=== PATIENT | male | born 1940 | race Caucasian/White ===

== ENCOUNTER → 2017-12-23 12:37 | Outpatient (CLI) | payer MEDICARE, BC ==
[2013-06-10 12:49] VITALS: BMI 25.4
[~2017-12-23 12:37] MED LIST: ASPIRIN325 MG PO; HCTZ25 MG PO; HEMOCYTE PLUS1 CAP PO; HYTRIN5 MG PO; LISINOPRIL10 MG PO; LOPRESSOR25 MG PO; MOBIC7.5 MG PO; NORCO 7.5-3251 EACH PO; PRAVACHOL20 MG PO; ZANAFLEX4 MG PO
== END | disposition home or self-care (01) ==
LOC: D.MRI 12:37
DX: M79.7 Fibromyalgia (principal); R29.2 Abnormal reflex; M62.838 Other muscle spasm

== ENCOUNTER → 2018-02-28 12:59 | Outpatient (CLI) | payer MEDICARE ==
[2013-06-10 12:49] VITALS: BMI 25.4
== END | disposition home or self-care (01) ==
LOC: D.CT 12:59
DX: R29.6 Repeated falls (principal)

== ENCOUNTER 2018-03-24 10:05 | Emergency (ER) | payer MEDICARE ==
[~2018-03-24] VITALS: Ht 175.3 cm; Wt 73.5 kg
[2018-03-24 10:08] VITALS: Ht 175.3 cm; Wt 73.5 kg
[2018-03-24 11:36] LABS: BASOPHILS 0.1 % (0-2); EOSINOPHILS 0.6 % (0-7); HEMATOCRIT 44.7 % (42.0-54.0); HEMOGLOBIN 15.5 g/dL (13.5-17.5); IMMATURE GRANULOCYTES 0.1 % (0-5); LYMPHOCYTES 21.5 % (15-50); MCH 30.3 pg (26.0-34.0); MCHC 34.7 g/dL (31.0-37.0); MCV 87.5 fL (80.0-100.0); MEAN PLATELET VOLUME 9.7 fL (7.4-10.4); MONOCYTES 8.3 % (2-11); NEUTROPHILS 69.4 % (40-80); PLATELET COUNT 166 10x3/uL (130-400); RBC 5.11 10x6/uL (4.20-6.10); RDW 12.6 % (11.5-14.5); WBC 6.9 10x3/uL (4.8-10.8)
[2018-03-24 11:59] LABS: ANION GAP 15.5 mmol/L (8-16); BILIRUBIN - TOTAL 0.98 mg/dL (0.2-1.3); CALCIUM 8.8 mg/dL (8.5-10.1); CARBON DIOXIDE 25.9 mmol/L (21.0-32.0); CREATININE - SERUM 1.3 mg/dL (0.6-1.3); POTASSIUM - SERUM 4.4 mmol/L (3.5-5.1); PROTEIN - SERUM 7.5 g/dL (6.4-8.2)
[2018-03-24 15:21] VITALS: BP 135/84
== END 2018-03-24 15:22 | disposition home or self-care (01) ==
LOC: D.ER 10:05
PROVIDERS: Family Medicine
DX: R14.0 Abdominal distension (gaseous) (principal); I10 Essential (primary) hypertension; N42.9 Disorder of prostate, unspecified

== ENCOUNTER → 2018-04-16 10:53 | Outpatient (CLI) | payer MEDICARE ==
[2018-03-24 10:08] VITALS: BMI 25.4
== END | disposition home or self-care (01) ==
LOC: D.CT 10:53
DX: R10.9 Unspecified abdominal pain (principal)

== ENCOUNTER → 2019-02-05 10:52 | Outpatient (CLI) | payer MEDICARE ==
[2018-03-24 10:08] VITALS: BMI 25.4
[~2019-02-05 10:52] MED LIST changes: +ISOSORBIDE MONO30 M1 PO
[2019-02-12 07:18] VITALS: BMI 25.1
== END | disposition home or self-care (01) ==
LOC: D.HCCARDIO 10:52
PROVIDERS: ATTEND Internal Medicine Cardiovascular Disease
DX: I25.110 Atherosclerotic heart disease of native coronary artery with unstable angina pectoris (principal); I10 Essential (primary) hypertension

== ENCOUNTER 2019-02-12 06:33 | Outpatient (CLI) | payer MEDICARE ==
[~2019-02-12] VITALS: Ht 175.3 cm; Wt 77.3 kg
--- NOTE | ~2019-02-12 | HEMODYNAMI ---
PATIENT:JUNIOR FORRESTER MEDICAL RECORD: [id number] : 42 LOCATION:[facility] ADMISSION DATE: 02/12/19 Generatedon:02/12/20199:10 Patient name: JUNIOR FORRESTER Patient #: [id number] SSN: [id number] : 1940 Date of study: 02/12/2019 Page: Of Hemodynamic Procedure Report Patient Data Patient Demographics Procedure consent was obtained First Name: JUNIOR Gender: Male Last Name: USAMA : 1940 [facility] Initial: MARY JO Age: 78 year(s) Patient #: [id number] Race: SSN: [id number] Additional ID: [id number] Contact details [address]: [address] [place] [address] rd State: [place] City: [place] Zip code: [address] Past Medical History Performed procedures and imaging results Date Procedure Procedure Results Comments Stress testing Positive->Intermediate with SPECT MPI risk History of disease Date Diagnosis Comments CAD Allergies: No allergy information Admission Admission Data Admission Date: 02/12/2019 Admission Time: 6:33 Arrival Date: 02/12/2019 Arrival Time: 0:00 Admit Source: Other Insurance Payor: Medicaid [facility] #: [id number] Height (in.): 69 BSA: 1.95 (m2) Height (cm.): 175.26 BMI: 25.84 (kg/m2) Weight (lbs.): 175 Weight (kg.): 79.38 Medications upon Admission Medications Dosage Times Administered Last Remarks per Delivery Day Date and Time Aspirin 325 mg 1 (any) Statin (any) 20 mg 1 Lab Results Lab Result Date: 02/12/2019 Lab Result Time: 0:00 Biochemistry Name Units Result Min Max BUN mg/dl 18 --(---*)-- 7 18 Creatinine mg/dl 1.3 --(---*)-- 0.6 1.3 eGFR ml/min 57 *-(----)-- 90 120 NONAFRICAN CBC Name Units Result Min Max Hematocrit % 41.3 -*(----)-- 42 54 Hemoglobin g/dl 14.6 --(-*--)-- 13.5 17.5 Procedure Procedure Types Cath Procedure Diagnostic Procedure [facility] w/Coronaries w/Grafts Sedation Charges Moderate Sedation up to 15 minutes Procedure Description Procedure Date Procedure Date: 02/12/2019 Procedure Start Time: 8:44 Procedure End Time: 9:08 Procedure Staff Name Function Aravind Godoy MD Performing Physician Elizabeth Castro RT Monitor Yumiko Maxwell RN Pool Finisher Del Villanueva RT Scrub Tammie Damon RT Scrub Yumiko Maxwell RN Nurse Indication CAD Procedure Data Cath Procedure Fluoroscopy Diagnostic fluoroscopy Total fluoroscopy Time: 4.3 time: 4.3 min min Diagnostic fluoroscopy Total fluoroscopy dose: 592 dose: 592 mGy mGy Contrast Material Contrast Material Type Amount (ml) Isovue 300 103 Entry Location Entry Primary Successful Side Size Upsize Upsize Entry Closure Succes sful Closure Location (Fr) 1 (Fr) 2 (Fr) Remarks Device Remarks Femoral Right 5 Fr Exoseal artery Estimated blood loss: 5 ml Diagnostic catheters Device Type Used For End Catheter Placement MULTIPACK JL 4.0 5Fr Procedure catheter DIAGNOSTIC AR MOD 5Fr Procedure Catheter ([id number]) DIAGNOSTIC IM 5Fr Procedure catheter ([id number]) MULTIPACK Pigtail 5 Fr Procedure catheter Procedure Complications No complications Procedure Medications Medication Administration Route Dosage Oxygen etCO2 Nasal cannula 2 l/min Lidocaine 2% added to field 20 Heparin Flush Bag added to field 2 bags (1000units/500ml NS) 0.9% NaCl I.V. 100 ml/hr Versed I.V. 1 mg Fentanyl I.V. 50 mcg Versed I.V. 1 mg Fentanyl I.V. 50 mcg Versed I.V. 1 mg Hemodynamics Rest BSA: 1.95 (m2) O2 Consumption: Estimated: 203.45 (ml/min) O2 Consumption indexed : Estimated:104.33 (ml/min/m) Heart Rate: 43 (bpm) Pressure Samples Time Site Value (mmHg) Purpose Heart Use Rate(bpm) 8:58 LV 140/-7,12 Snapshot 53 Gradients Valve Time Site Site Mean SEP/DFP Peak To Heart Use 1 2 (mmHg) (sec/min) Peak Rate (mmHg) (bpm) Aortic 8:59 LV AO 49 Snapshots Pre Cath Intra NCS Post Cath Vital Signs Time Heart Resp SPO2 etCO2 NIBP (mmHg) Rhythm Pain Sedation Rate (ipm) (%) (mmHg) Status Level (bpm) 8:23:16 44 10 100 18 152/68(125) NSR 0 (11) 10(A) , No pain 8:27:42 44 19 95 27 131/59(111) NSR 0 (11) 10(A) , No pain 8:32:02 45 16 96 29.3 138/60(105) NSR 0 (11) 10(A) , No pain 8:36:24 44 14 98 29.3 142/62(110) NSR 0 (11) 9(A) , No pain 8:40:50 44 13 97 30 135/58(104) NSR 0 (11) 9(A) , No pain 8:45:11 46 14 97 9.7 143/61(101) NSR 0 (11) 9(A) , No pain 8:49:35 48 11 97 31.6 154/62(103) NSR 0 (11) 9(A) , No pain 8:54:34 51 11 97 9.7 Measuring NSR 0 (11) 9(A) , No pain 8:54:52 54 11 94 0 130/53(100) NSR 0 (11) 9(A) , No pain 8:59:12 48 15 97 12.7 120/50(98) NSR 0 (11) 10(A) , No pain 9:04:11 46 10 98 12 Measuring NSR 0 (11) 10(A) , No pain 9:04:30 48 10 98 0 142/54(105) NSR 0 (11) 10(A) , No pain Medications Time Medication Route Dose Verified Delivered Reason Notes Effec tiveness by by 8:11:50 Oxygen etCO2 2 Aravind Buffie used for Nasal l/min Walt Maxwell RN procedure cannula 8:12:24 Lidocaine 2% added 20ml Aravind Aravind used for to vial Walt Godoy MD procedure field 8:12:30 Heparin Flush added 2 Aravind Aravind used for Bag to bags Walt Godoy MD procedure (1000units/500ml field NS) 8:12:47 0.9% NaCl I.V. 100 Aravind Buffie Per ml/hr Walt Maxwell RN physician 8:32:03 Versed I.V. 1 mg Aravind Bhavyaie for Walt Maxwell RN sedation 8:32:09 Fentanyl I.V. 50 Aravind Buffie for mcg Walt Maxwell RN sedation 8:45:36 Versed I.V. 1 mg Aravind Buffie for Walt Maxwell RN sedation 8:45:39 Fentanyl I.V. 50 Aravind Buffie for mcg Walt Maxwell RN sedation 8:55:01 Versed I.V. 1 mg Aravind Buffie for Walt Maxwell RN sedation Procedure Log Time Note 8:06:27 Informed consent obtained and on chart 8:07:06 Del Villanueva RT(R) sent for patient. Start room use. 8:09:13 Patient allergic to No allergy information 8:09:21 Arrival Date: 02/12/2019 12:00:00 AM 8:09:49 Insurance Payor : Medicaid 8:09:50 Admit Source: Other 8:09:56 Patient Height : 69 inches 8:10:11 Patient Weight : 175 lbs 8:11:50 Oxygen 2 l/min etCO2 Nasal cannula was administered by Yumiko Maxwell RN; used for procedure; 8:12:24 Lidocaine 2% 20ml vial added to field was administered by Aravind Godoy MD; used for procedure; 8:12:30 Heparin Flush Bag (1000units/500ml NS) 2 bags added to field was administered by Aravind Godoy MD; used for procedure; 8:12:47 0.9% NaCl 100 ml/hr I.V. was administered by Yumiko Maxwell RN; Per physician; 8:15:04 Lab Result : BUN 18 mg/dl 8:15:04 Lab Result : eGFR NONAFRICAN 57 ml/min 8:15:04 Lab Result : Creatinine 1.3 mg/dl 8:15:04 Lab Result : Hemoglobin 14.6 g/dl 8:15:04 Lab Result : Hematocrit 41.3 % 8:15:35 Indication : CAD 8:15:46 Patient received from Pre/Post Procedure Room to CCL 1 Alert and oriented. Tansferred to table in Supine position. 8:15:48 Warm blankets applied, and eileen hugger turned on for patient comfort. 8:15:48 Correct patient and procedure confirmed by team. 8:15:49 ECG and BP/O2 sat monitors applied to patient. 8:15:59 H&P Date Dictated: 01/29/2019 Within 30 days and on chart., H&P Addendum completed by physician on day of procedure. (MUST COMPLETE FOR ALL OUTPATIENTS). 8:21:16 Pre-procedure instructions explained to patient. 8:21:16 Pre-op teaching completed and patient verbalized understanding. 8:21:18 Family in patients room. 8:21:19 Patient NPO since Midnight. 8:21:21 Is patient on blood thinner?No 8:21:23 Patient diabetic? No. 8:21:26 Previous problem with sedation/anesthesia? No ? 8:21:28 Snore? Yes 8:21:30 Sleep apnea? No 8:21:34 Deviated septum? No 8:21:54 Opens mouth fully? Yes 8:21:56 Sticks out tongue? Yes 8:22:00 Vital chart was started 8:22:00 Airway obstruction? No ? 8:22:03 Dentures? No ? 8:23:05 Pre procedure: right dorsailis pedis pulse 2+ Normal; easily identifiable; not easily obliterated 8:23:08 Patient pain scale 0/10 ?. 8:23:12 IV patent on arrival in left hand with 0.9% NaCl at [facility]. 8:23:15 Lab results completed and on chart. 8:23:18 Right groin area was prepped with chlora-prep and draped in sterile fashion 8:23:19 Alarms reviewed by R. N. 8:23:19 Sharps counted by scrub and verified by R.N. 8:23:23 Use device set Femoral Dx 8:23:24 ACIST Syringe (54169) opened to sterile field. 8:23:24 Bag Decanter (2002S) opened to sterile field. 8:23:25 ACIST Hand Control (88931) opened to sterile field. 8:23:25 ACIST Manifold (67110) opened to sterile field. 8:23:26 Tegaderm 4 x 4 (1626W) opened to sterile field. 8:23:27 Medline Cath Pack ([id number]) opened to sterile field. 8:23:28 DIAGNOSTIC Multipack 5Fr catheter set ([id number]) opened to sterile field. 8:23:29 SHEATH 5FR Cecil (TIV506) opened to sterile field. 8:23:29 EMERALD Guide Wire (638-853) opened to sterile field. 8:23:41 Rhythm: sinus bradycardia 8:23:43 Full Disclosure recording started 8:30:14 --------ALL STOP TIME OUT------ 8:30:14 Final Timeout: patient, procedure, and site verified with staff and physician. All members of the team are in agreement. 8:30:16 Right groin site verified by team. 8:30:19 Fire Safety Assessment: A--An alcohol-based skin anteseptic being used preoperatively., C--Open oxygen or nitrous oxide is being used., D--An ESU, laser, or fiber-optic light is being used. 8:30:22 Physical assessment completed. ASA score P 2 - A patient with mild systemic disease as per Aravind Godoy MD. 8:30:26 3a) 45-59 Moderately reduced kidney function. 8:30:30 Maximum allowable contrast dose (3.7 X eGFR X 0.75)158 ml. 8:30:34 Sedation plan: IV Moderate Sedation Medication:Versed, Fentanyl 8:32:03 Versed 1 mg I.V. was administered by Yumiko Maxwell RN; for sedation; 8:32:09 Fentanyl 50 mcg I.V. was administered by Yumiko Maxwell RN; for sedation; 8:42:05 Zero performed for pressure channel P1 8:42:09 Zero performed for pressure channel P1 8:42:18 Baseline sample Acquired. 8:43:31 Procedure started. 8:44:18 Local anesthetic to right femoral artery with Lidocaine 2% by Aravind Godoy MD.INITIAL ACCESS ONLY 8:45:36 Versed 1 mg I.V. was administered by Yumiko Maxwell RN; for sedation; 8:45:39 Fentanyl 50 mcg I.V. was administered by Yumiko Maxwell RN; for sedation; 8:45:56 A 5 Fr sheath was inserted into the Right Femoral artery 8:47:13 A MULTIPACK JL 4.0 5Fr catheter was advanced over the wire and used for Procedure. 8:48:45 LCA angiography performed. 8:49:18 Catheter exchanged over wire. 8:50:04 A DIAGNOSTIC AR MOD 5Fr Catheter ([id number]) was advanced over the wire and used for Procedure. 8:52:40 SVG to Diag occluded. 8:53:17 Catheter exchanged over wire. 8:54:19 A DIAGNOSTIC IM 5Fr catheter ([id number]) was advanced over the wire and used for Procedure. 8:55:01 Versed 1 mg I.V. was administered by Yumiko Maxwell RN; for sedation; 8:55:24 MCKEON to LAD angiography performed. 8:56:00 Catheter exchanged over wire. 8:58:11 A MULTIPACK Pigtail 5 Fr catheter was advanced over the wire and used for Procedure. 8:58:26 LV gram done using POPE 8:58:28 Injector settings: Ml/sec: 10, Volume: 20, 8:58:53 LV hemodynamics recorded. 8:59:11 EF : 50 % 8:59:30 Catheter removed. 8:59:34 EXOSEAL 5Fr (EX500) opened to sterile field. 9:00:16 Sheath removed intact; hemostasis achieved with Exoseal to the Right Femoral artery. 9:01:13 Procedure ended.(Physican Out) 9:02:10 Fluoroscopy time 04.30 minutes. 9:02:15 Fluoroscopy dose: 592 mGy 9:02:15 Flurop Dose total: 592 9:02:20 Dose Area Product 22771 mGy/cm. 9:02:24 Contrast amount:Isovue 300 103ml. 9:03:30 Maximum allowable dose exceeded? No. 9:03:31 Sharps counted by scrub and verified by R.N. 9:04:34 Post-op/insertion site Right Femoral artery dressed using a 4 x 4 and Tegaderm. 9:04:38 Post-procedure physical assessment completed. ASA score P 2 - A patient with mild systemic disease as per Aravind Godoy MD. 9:04:41 Post procedure rhythm: sinus bradycardia 9:04:44 Estimated blood loss: 5 ml 9:04:45 Post procedure instruction explained to patient.Patient verbalizes understanding. 9:04:46 Patient needs reinforcement of post procedure teaching. 9:05:25 Procedure type changed to Cath procedure, Diagnostic procedure, LHC, LHC w/Coronaries w/Grafts, Sedation Charges, Moderate Sedation up to 15 minutes 9:08:04 Procedure and supply charges have been captured, reviewed, submitted and are correct. 9:08:07 Procedure Complication : No complications 9:08:11 Vital chart was stopped 9:08:13 See physician's report for complete and final results. 9:08:16 Report given to Pre/Post Procedure Room. 9:08:19 Patient transfered to Pre/Post Procedure Room with Bed. 9:08:22 Procedure ended. 9:08:22 Full Disclosure recording stopped 9:08:27 End room use (Document Last) Device Usage Item Name Manufacture Quantity Catalog Hospital Part Current Minimal L ot# / Number Charge Number Stock Stock Serial# Code ACIST Acist 1 44686 887233 527607 158413 20 Syringe Medical (99278) Systems Inc Bag Microtek 1 2001S 645713 15242 527043 5 Decanter Medical Inc. () ACIST Hand Acist 1 55663 966183 644525 626497 5 Control Medical (66464) Systems Inc ACIST Acist 1 04154 895216 344396 639793 5 Manifold Medical (08521) Systems Inc Tegaderm 4 3M 1 1626W 228461 669987 311909 5 x 4 (1626W) Medline Medline 1 [id number] 891218 56010 284137 5 Cath Pack ([id number]) DIAGNOSTIC Cardinal 1 [id number] 935308 38709 142035 30 Multipack Health 5Fr catheter set (YC4819) SHEATH 5FR Terumo 1 MRK596 021141 350480 262212 5 Cecil (RLT230) EMERALD Cardinal 1 502-455 621203 399226 530672 5 Guide Wire Health (502455) MULTIPACK Cardinal 1 401485 5 JL 4.0 5Fr Health catheter DIAGNOSTIC Cardinal 1 [id number] 927000 482250 816148 15 AR MOD 5Fr Health Catheter (263437G) DIAGNOSTIC Cardinal 1 [id number] 671656 372145 100126 5 IM 5Fr Health catheter (404674A) MULTIPACK Cardinal 1 189022 5 Pigtail 5 Health Fr catheter EXOSEAL 5Fr Cardinal 1 EX500 547404 452893 840125 10 (EX500) Health Signature Audit [place] Stage Time Signature Unsigned Intra-Procedure 02/12/2019 Elizabeth Castro 9:10:03 AM RT(R) Signatures Performing Physician : Signature : Aravind Godoy MD Date : Time : Monitor : Elizabeth Castro Signature : RT Date : Time : Nurse : Buffie Maxwell RN Signature : Date : Time : [address] [place] [address]
[~2019-02-12 06:33] MED LIST changes: -ISOSORBIDE MONO30 M1 PO
[2019-02-12 07:18] VITALS: BP 159/62; Ht 175.3 cm; Wt 77.3 kg
[2019-02-12 07:19] LABS: BASOPHILS 0.3 % (0-2); EOSINOPHILS 1.2 % (0-7); HEMATOCRIT 41.3 % (42.0-54.0); HEMOGLOBIN 14.6 g/dL (13.5-17.5); IMMATURE GRANULOCYTES 0.2 % (0-5); LYMPHOCYTES 28.6 % (15-50); MCH 30.2 pg (26.0-34.0); MCHC 35.4 g/dL (31.0-37.0); MCV 85.5 fL (80.0-100.0); MEAN PLATELET VOLUME 9.5 fL (7.4-10.4); MONOCYTES 9.2 % (2-11); NEUTROPHILS 60.5 % (40-80); PLATELET COUNT 170 10x3/uL (130-400); RBC 4.83 10x6/uL (4.20-6.10); RDW 12.7 % (11.5-14.5); WBC 5.9 10x3/uL (4.8-10.8)
[2019-02-12 07:35] LABS: CHOL - HDL RATIO 4.2 ratio (2.3-4.9); LDL-HDL RATIO 2.7 ratio (1.5-3.5)
[2019-02-12 07:50] LABS: ANION GAP 14.8 mmol/L (8-16); CALCIUM 8.7 mg/dL (8.5-10.1); CARBON DIOXIDE 23.2 mmol/L (21.0-32.0); CREATININE - SERUM 1.3 mg/dL (0.6-1.3)
--- NOTE | 2019-02-12 09:28 | NUR ---
RECEIVED PT FROM HADOOP ADMINISTRATOR,. PT IS DROWSY BUT ANSWERS QUESTIONS APPROPRIATELY, DENIES ANY C/O CHEST PAIN. DRESSING CDI TO RIGHT GROIN. PEDAL PULSES PALPABLE. SINUS TATIANA AT 44, BP IS 137/58. HOB IS FLAT, BED LOCKED AND LOW, SIDE RAILS UP X2, CALL LIGHT IN REACH, NO FAMILY AT BEDSIDE.
[2019-02-12] MEDS ORDERED: ISOSORBIDE MONO30 M1 PO (09:33)
--- NOTE | 2019-02-12 09:42 | NUR ---
DRESSING CDI TO RIGHT GROIN, AREA IS SOFT AND NONTENDER. PEDAL PULSES PALPABLE. RESP WITH EASE ON O2 AT 2LPM VIA NC. SINUS TATIANA AT 44, DENIES ANY C/O CHEST PAIN. HOB IS FLAT. CALL LIGHT IN REACH.
--- NOTE | 2019-02-12 10:06 | NUR ---
PT SLEEPING, RESP WITH EASE ON O2 AT 2LPM VIA NC. DRESSING CDI TO RIGHT GROIN, AREA IS SOFT AND NONTENDER. PEDAL PULSES PALPABLE. HOB IS FLAT. SINUS TATIANA AT 44, BP IS 126/54. HOB IS FLAT, CALL LIGHT IN REACH.
--- NOTE | 2019-02-12 10:31 | NUR ---
PT ALERT, DENIES ANY C/O. HOB ELEVATED 30 DEGREES, DRESSING CDI TO RIGHT GROIN, PEDAL PULSES PALPABLE. SINUS TATIANA AT 44, DENIES ANY C/O CHEST PAIN. CALL LIGHT IN REACH.
--- NOTE | 2019-02-12 10:44 | NUR ---
DRESSING CDI TO RIGHT GROIN, AREA IS SOFT AND NONTENDER. SINUS TATIANA AT 44, PT IS ALERT AND DENIES ANY C/O CHEST PAIN. BP IS 143/64. HOB FULLY ELEVATED, SANDWICH AND PO FLUIDS SERVED. CALL LIGHT IN REACH. NO FAMILY AT BEDSIDE.
--- NOTE | 2019-02-12 11:09 | NUR ---
PT SITTING UP IN BED, WATCHING TV. IS ALERT AND DENIES ANY C/O PAIN OR NAUSEA. DRESSING REMAINS CDI TO RIGHT GROIN, PEDAL PULSES PALPABLE. PT HAS TOLERATED 100% OF SANDWICH TRAY. CALL LIGHT IN REACH.
--- NOTE | 2019-02-12 12:17 | NUR ---
1140 IV DC'D IWTH CATH INTACT. DC INSTRUCTIONS REVIEWED WITH PT WHO VERBALIZES UNDERSTANDING. IMDUR PRESCRIPTION TO PT. DRESSING REMAINS CDI TO RIGHT GROIN. PEDAL PULSES PALPABLE. PT IS ALERT AND DENIES ANY C/O. PT DRESSING FOR DC TO HOME WITH ASSIST. 1205 PT HAS VOIDED APPROX 600 CC CLEAR YELLOW URINE TO URINAL. IS DRESSED FOR DC TO HOME. PT'S SON IS HERE TO PICK HIM UP. PT ESCORTED TO [facility] VIA WC BY NURSE WITH SON DRIVING HIM HOME. PT HAS ALL PERSONAL BELONGINGS, DC INSTRUCTIONS AND DENIES ANY C/O UPON DC.
== END 2019-02-12 12:05 | disposition home or self-care (01) ==
LOC: D.CATH 06:33
PROVIDERS: ATTEND Internal Medicine Cardiovascular Disease
DX: I25.119 Atherosclerotic heart disease of native coronary artery with unspecified angina pectoris (principal); I25.719 Atherosclerosis of autologous vein coronary artery bypass graft(s) with unspecified angina pectoris; Z01.812 Encounter for preprocedural laboratory examination

== ENCOUNTER 2020-10-11 08:00 | Outpatient (CLI) | payer MEDICARE, MEDICAID, BC ==
[2019-02-12 07:18] VITALS: BMI 25.1
[~2020-10-11 08:00] MED LIST changes: +ISOSORBIDE MONO30 M1 PO
== END 2020-10-11 08:01 | disposition home or self-care (01) ==
LOC: D.HCCECHO 08:00
PROVIDERS: ATTEND Internal Medicine Cardiovascular Disease
DX: I34.0 Nonrheumatic mitral (valve) insufficiency (principal)